=== PATIENT | female | born 2000 | race Caucasian/White ===

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

== ENCOUNTER → 2019-03-03 | Outpatient (CLI) | payer BC, MEDICAID, OTHER ==
[2019-03-03 16:59] LABS: Cholesterol 181 mg/dL (0-200); Triglycerides <50.0 mg/dL (0.0-149.0); VLDL Calculation 9.98 mg/dL (5.00-40.00)
[2019-03-03 18:06] LABS: Creatinine,Urine Random 208.3 mg/dL; Total Protein,Urine Random 23.9 mg/dL (0.0-13.5)
== END | disposition home or self-care (01) ==
LOC: LABWHC1 09:33
PROVIDERS: ATTEND Registered Nurse Reproductive Endocrinology/Infertility
DX: E10.9 Type 1 diabetes mellitus without complications (principal)
CPT/HCPCS: 36415; 80061; 82306; 82570; 84156; 84439; 84443

== ENCOUNTER → 2019-07-20 | Outpatient (CLI) | payer BC, MEDICAID, OTHER | END | disposition home or self-care (01) | LOC: LABWHC1 13:25 | PROVIDERS: ATTEND Pediatrics Pediatric Endocrinology | DX: R80.9 Proteinuria, unspecified (principal); R53.83 Other fatigue | CPT/HCPCS: 36415; 82043; 82570; 84443 ==

== ENCOUNTER → 2020-03-25 | Outpatient (CLI) | payer MEDICAID, OTHER ==
[2020-03-25 17:32] LABS: Urine Creatinine 182.4 mg/dL
[2020-03-25 19:08] LABS: Chol/HDL Ratio 2.08
[2020-03-25 19:15] LABS: T4, Free (Free Thyroxine) 1.2 ng/dL (0.83-1.43)
== END | disposition home or self-care (01) ==
LOC: LABWHC1 10:21
DX: E10.9 Type 1 diabetes mellitus without complications (principal); Z13.0 Encounter for screening for diseases of the blood and blood-forming organs and certain disorders involving the immune mechanism
CPT/HCPCS: 36415; 80061; 82043; 82570; 84439; 84443

== ENCOUNTER → 2021-08-28 | Outpatient (CLI) | payer MEDICAID, OTHER ==
[2021-08-28 18:06] LABS: Basophils # (A) 0.01 X 10*3/uL (0.00-0.10); Basophils % (A) 0.1 %; Eosinophils # (A) 0.11 X 10*3/uL (0.04-0.35); Eosinophils % (A) 1.3 %; HCT 41.7 % (37.2-46.3); HGB 13.8 g/dL (12.0-15.0); Lymphocytes # (A) 2.08 X 10*3/uL (0.90-5.00); Lymphocytes % (A) 25.4 %; MCHC 33.1 g/dL (32.0-37.0); MCV 93.7 fL (80.0-97.0); Mean Platelet Volume 8.9 fL (9.5-12.2); Monocytes # (A) 0.49 X 10*3/uL (0.20-1.00); Neutrophils # (A) 5.47 X 10*3/uL (1.80-7.70); Neutrophils % (A) 66.8 %; Platelet Count 441 X 10*3/uL (140-440); RBC 4.45 X 10*6/uL (4.10-5.20); RDW 11.2 % (11.5-14.5); WBC 8.19 X 10*3/uL (4.50-10.00)
[2021-08-28 18:34] LABS: African American GFR (CKD) 144.4 (60.0-200.0); Albumin 4.2 g/dL (3.8-4.9); Albumin/Globulin Ratio 1.63 (1.60-3.17); Anion Gap 13.8 mmol/L (10.00-18.00); BUN/Creat Ratio 15.99 Ratio (12.00-20.00); C Reactive Protein 0.9 mg/dL (0.00-0.80); Calcium 9.2 mg/dL (8.7-10.3); Carbon Dioxide 21.1 mmol/L (20.0-27.5); Globulin 2.6 g/dL (1.6-3.3); Non-African American GFR(CKD) 124.6 (60.0-200.0); Potassium 4.3 mmol/L (3.5-5.5); Total Bilirubin 0.3 mg/dL (0.30-1.20); Total Protein 6.7 g/dL (6.2-8.2)
[2021-08-28 19:29] LABS: Erythrocyte Sedimentation Rate 10 mm/Hr (0-20)
== END | disposition home or self-care (01) ==
LOC: LABWHC1 11:46
PROVIDERS: ATTEND Internal Medicine
DX: L50.9 Urticaria, unspecified (principal)
CPT/HCPCS: 36415; 80053; 84443; 85025; 85652; 86038; 86140; 86160

== ENCOUNTER → 2022-01-29 | Outpatient (CLI) | payer MEDICAID, OTHER ==
[2022-01-29 23:04] LABS: Basophils # (A) 0.01 X 10*3/uL (0.00-0.10); Basophils % (A) 0.1 %; Eosinophils # (A) 0.13 X 10*3/uL (0.04-0.35); Eosinophils % (A) 1.6 %; HCT 45.3 % (37.2-46.3); HGB 14.6 g/dL (12.0-15.0); Immature Grans, Automated 0.2 %; Lymphocytes # (A) 2.58 X 10*3/uL (0.90-5.00); Lymphocytes % (A) 31.8 %; MCH 30.1 pg (27.0-32.0); MCHC 32.2 g/dL (32.0-37.0); MCV 93.4 fL (80.0-97.0); Mean Platelet Volume 9.5 fL (9.5-12.2); Monocytes # (A) 0.44 X 10*3/uL (0.20-1.00); Monocytes % (A) 5.4 %; NRBC Per 100 WBC 0 /100 WBCS (0.0-0.0); Neutrophils # (A) 4.94 X 10*3/uL (1.80-7.70); Neutrophils % (A) 60.9 %; Platelet Count 502 X 10*3/uL (140-440); RBC 4.85 X 10*6/uL (4.10-5.20); RDW 11.8 % (11.5-14.5); WBC 8.12 X 10*3/uL (4.50-10.00)
== END | disposition home or self-care (01) ==
LOC: LABWHC1 14:37
PROVIDERS: ATTEND Internal Medicine Endocrinology, Diabetes & Metabolism
DX: E10.65 Type 1 diabetes mellitus with hyperglycemia (principal)
CPT/HCPCS: 36415; 85025

== ENCOUNTER → 2022-01-29 | Outpatient (CLI) | payer MEDICAID, OTHER ==
--- NOTE | 2022-01-31 09:07 | US ---
EXAMINATION TYPE: US thyroid st tissue head/neck DATE OF EXAM: 01/29/2022 COMPARISON: NONE CLINICAL HISTORY: E04.9 NONTOXIC GOITER UNSPECIFIED. GLAND SIZE: Right Lobe: 4.3 x 1.3 x 1.4 cm Overall Parenchyma: homogenous Left Lobe: 4.9 x 1.5 x 1.5 cm Overall Parenchyma: homogeneous Isthmus Thickness: 0.2 cm NODULES RIGHT: # of nodules measured on right: 0 LEFT: # of nodules measured on left: 0 ISTHMUS: # of nodules measured in the isthmus: 0 Bilateral neck scanned, no evidence of lymphadenopathy. IMPRESSION: No evidence of thyroid nodules.
== END | disposition home or self-care (01) ==
LOC: RADUSWWP 15:54
PROVIDERS: ATTEND Internal Medicine Endocrinology, Diabetes & Metabolism
DX: E04.9 Nontoxic goiter, unspecified (principal)
CPT/HCPCS: 76536

== ENCOUNTER → 2022-04-15 | Outpatient (CLI) | payer MEDICAID, OTHER ==
--- NOTE | 2022-04-15 15:50 | XR ---
EXAMINATION TYPE: XR wrist complete RT DATE OF EXAM: 04/15/2022 COMPARISON: NONE HISTORY: Pain TECHNIQUE: Four views submitted. FINDINGS: The osseous structures are intact. The joint spaces are preserved and there is no acute fracture or dislocation. IMPRESSION: 1. No definite acute fracture or dislocation if symptoms persist, consider follow-up MRI
== END | disposition home or self-care (01) ==
LOC: RADXRMAIN 13:10
PROVIDERS: ATTEND Family Medicine
DX: M25.531 Pain in right wrist (principal)

== ENCOUNTER → 2022-07-31 | Outpatient (CLI) | payer MEDICAID, OTHER ==
[2022-07-31 17:21] LABS: Basophils # (A) 0.01 X 10*3/uL (0.00-0.10); Basophils % (A) 0.1 %; Eosinophils # (A) 0.16 X 10*3/uL (0.04-0.35); Eosinophils % (A) 1.5 %; HCT 41.2 % (37.2-46.3); HGB 13.8 g/dL (12.0-15.0); Immature Grans, Automated 0.4 %; Lymphocytes # (A) 2.57 X 10*3/uL (0.90-5.00); Lymphocytes % (A) 23.7 %; MCH 30.6 pg (27.0-32.0); MCHC 33.5 g/dL (32.0-37.0); MCV 91.4 fL (80.0-97.0); Mean Platelet Volume 8.8 fL (9.5-12.2); Monocytes # (A) 0.56 X 10*3/uL (0.20-1.00); Monocytes % (A) 5.2 %; NRBC Per 100 WBC 0 /100 WBCS (0.0-0.0); Neutrophils # (A) 7.51 X 10*3/uL (1.80-7.70); Neutrophils % (A) 69.1 %; Platelet Count 504 X 10*3/uL (140-440); RBC 4.51 X 10*6/uL (4.10-5.20); WBC 10.85 X 10*3/uL (4.50-10.00)
[2022-07-31 18:02] LABS: T4, Free (Free Thyroxine) 1.04 ng/dL (0.800-1.800)
[2022-07-31 18:17] LABS: African American GFR (CKD) 121.3 (60.0-200.0); Albumin 4.2 g/dL (3.8-4.9); Albumin/Globulin Ratio 1.56 (1.60-3.17); Anion Gap 14.3 mmol/L (10.00-18.00); BUN/Creat Ratio 6.63 Ratio (12.00-20.00); Blood Urea Nitrogen 5.3 mg/dL (9.0-27.0); Calcium 9.4 mg/dL (8.7-10.3); Carbon Dioxide 20.7 mmol/L (20.0-27.5); Globulin 2.7 g/dL (1.6-3.3); Non-African American GFR(CKD) 104.6 (60.0-200.0); Potassium 4.7 mmol/L (3.5-5.5); Total Bilirubin 0.5 mg/dL (0.30-1.20); Total Protein 6.9 g/dL (6.2-8.2)
== END | disposition home or self-care (01) ==
LOC: LABWHC1 09:43
PROVIDERS: ATTEND Internal Medicine Endocrinology, Diabetes & Metabolism
DX: E10.65 Type 1 diabetes mellitus with hyperglycemia (principal); R53.83 Other fatigue
CPT/HCPCS: 36415; 80053; 84439; 84443; 85025; 86038

== ENCOUNTER → 2023-06-29 | Outpatient (CLI) | payer MEDICAID, OTHER ==
[2023-06-30 03:03] LABS: HCT 44.2 % (37.2-46.3); HGB 14.4 g/dL (12.0-15.0); MCH 30.5 pg (27.0-32.0); MCHC 32.6 g/dL (32.0-37.0); MCV 93.6 FL (80.0-97.0); Mean Platelet Volume 9.4 FL (9.5-12.2); NRBC Per 100 WBC 0 X 10*3/uL (0.00-0.01); Platelet Count 521 X 10*3/uL (140-440); RBC 4.72 X 10*6/uL (4.10-5.20); RDW 11.9 % (11.5-14.5); WBC 11.18 X 10*3/uL (4.50-10.00)
[2023-06-30 04:11] LABS: Rheumatoid Factor, Qnt <15 IU/mL (0-15); T4, Free (Free Thyroxine) 1.07 ng/dL (0.80-1.80); Thyroid Peroxidase Antibodies <9.0 U/mL (0.0-33.0)
[2023-06-30 04:33] LABS: ALT 15 U/L (8-44); AST 20 U/L (13-35); Albumin 4.7 g/dL (3.8-4.9); Albumin/Globulin Ratio 1.57 Ratio (1.60-3.17); Alkaline Phosphatase 87 U/L (41-126); Blood Urea Nitrogen 7.6 mg/dL (9.0-27.0); Calcium 10.5 mg/dL (8.7-10.3); Carbon Dioxide 19.2 mmol/L (21.6-31.8); Chloride 100 mmol/L (96-109); Glucose 166 mg/dL (70-110); Potassium 4.9 mmol/L (3.5-5.5); Sodium 137 mmol/L (135-145); Total Bilirubin <0.2 mg/dL (0.3-1.2); Total Protein 7.7 g/dL (6.2-8.2)
[2023-06-30 04:54] LABS: Erythrocyte Sedimentation Rate 16 mm/Hr (0-20)
[2023-06-30 06:02] LABS: Cyclic Citrull Pep IgG Unit <1.5 U/mL (<=3.9); Cyclic Citrullinated Pep IgG Negative
== END | disposition home or self-care (01) ==
LOC: LABWHC1 12:00
PROVIDERS: ATTEND Internal Medicine Endocrinology, Diabetes & Metabolism
DX: E04.9 Nontoxic goiter, unspecified (principal); E10.65 Type 1 diabetes mellitus with hyperglycemia; R79.82 Elevated C-reactive protein (CRP)
CPT/HCPCS: 36415; 80053; 84439; 84443; 84481; 85027; 85652; 86038; 86141; 86200; 86376; 86431

== ENCOUNTER → 2024-03-02 | Outpatient (CLI) | payer MEDICAID, OTHER ==
--- NOTE | 2024-03-02 12:30 | US ---
EXAMINATION TYPE: US thyroid st tissue head/neck DATE OF EXAM: 03/02/2024 COMPARISON: Thyroid ultrasound 01/29/2022 CLINICAL INDICATION: Female, 23 years old with history of E049 NONTOXIC GOITER; GLAND SIZE: Right Lobe: 4.9 x 1.9 x 1.6 cm Overall Parenchyma: homogeneous Left Lobe: 4.1 x 1.5 x 1.5 cm Overall Parenchyma: homogeneous Isthmus Thickness: 0.15 cm NODULES RIGHT: # of nodules measured on right: 0 LEFT: # of nodules measured on left: 0 ISTHMUS: # of nodules measured in the isthmus: 0 IMPRESSION: Unremarkable thyroid ultrasound without discrete nodule.
[2024-03-02 17:21] LABS: ALT 13 U/L (8-44); AST 17 U/L (13-35); Albumin 4.5 g/dL (3.8-4.9); Albumin/Globulin Ratio 1.67 Ratio (1.60-3.17); Alkaline Phosphatase 89 U/L (41-126); BUN/Creat Ratio 8.88 Ratio (12.00-20.00); Blood Urea Nitrogen 7.1 mg/dL (9.0-27.0); Calcium 9.9 mg/dL (8.7-10.3); Carbon Dioxide 23.2 mmol/L (21.6-31.8); Chloride 101 mmol/L (96-109); Chol/HDL Ratio 2.93 Ratio; Globulin 2.7 g/dL (1.6-3.3); Glucose 155 mg/dL (70-110); LDL Cholesterol,Calculated 115.3 mg/dL (0.0-131.0); Potassium 4.5 mmol/L (3.5-5.5); Sodium 138 mmol/L (135-145); Total Bilirubin 0.4 mg/dL (0.3-1.2); Total Protein 7.2 g/dL (6.2-8.2)
== END | disposition home or self-care (01) ==
LOC: RADUSWWP 09:18
PROVIDERS: ATTEND Internal Medicine Endocrinology, Diabetes & Metabolism
DX: E10.65 Type 1 diabetes mellitus with hyperglycemia (principal); E04.9 Nontoxic goiter, unspecified
CPT/HCPCS: 76536; 80053; 80061; 84443

== ENCOUNTER → 2024-12-20 | Outpatient (CLI) | payer MEDICAID, OTHER ==
[2024-12-20 19:36] LABS: Basophils # (A) 0.06 X 10*3/uL (0.00-0.10); Basophils % (A) 0.7 %; Eosinophils # (A) 0.12 X 10*3/uL (0.04-0.35); Eosinophils % (A) 1.4 %; HCT 43.9 % (37.2-46.3); HGB 14.2 g/dL (12.0-15.0); Lymphocytes # (A) 2.05 X 10*3/uL (0.90-5.00); Lymphocytes % (A) 23.9 %; MCH 30.1 pg (27.0-32.0); MCHC 32.3 g/dL (32.0-37.0); Monocytes % (A) 5.8 %; NRBC Per 100 WBC 0 X 10*3/uL (0.00-0.01); Neutrophils # (A) 5.82 X 10*3/uL (1.80-7.70); Neutrophils % (A) 67.9 %; Platelet Count 551 X 10*3/uL (140-440); RBC 4.72 X 10*6/uL (4.10-5.20); RDW 11.9 % (11.5-14.5); WBC 8.58 X 10*3/uL (4.50-10.00)
[2024-12-20 20:35] LABS: ALT 11 U/L (8-44); AST 14 U/L (13-35); Albumin 4.6 g/dL (3.8-4.9); Albumin/Globulin Ratio 1.59 Ratio (1.60-3.17); Alkaline Phosphatase 88 U/L (41-126); BUN/Creat Ratio 7.62 Ratio (12.00-20.00); Blood Urea Nitrogen 6.1 mg/dL (9.0-27.0); Calcium 9.9 mg/dL (8.7-10.3); Chloride 101 mmol/L (96-109); Globulin 2.9 g/dL (1.6-3.3); Glucose 185 mg/dL (70-110); Potassium 4.6 mmol/L (3.5-5.5); Sodium 139 mmol/L (135-145); T4, Free (Free Thyroxine) 1.04 ng/dL (0.80-1.80); Total Bilirubin 0.4 mg/dL (0.3-1.2); Total Protein 7.5 g/dL (6.2-8.2)
== END | disposition home or self-care (01) ==
LOC: LABWHC1 11:58
PROVIDERS: ATTEND Internal Medicine Endocrinology, Diabetes & Metabolism
DX: E10.65 Type 1 diabetes mellitus with hyperglycemia (principal)
CPT/HCPCS: 36415; 80053; 84439; 84443; 85025